=== PATIENT | male | born 1970 | race African-American/Black ===

== ENCOUNTER 2016-09-19 10:04 | Observation (INO) | payer MEDICARE, OTHER ==
[2016-09-19] VITALS (10 sets, daily range): BP systolic 156–209; BP diastolic 97–113; PULSE 48–62; RESP 16–20; TEMP 97.8–99; O2SAT 97–99
[~2016-09-19] VITALS: Ht 172.7 cm; Wt 80.0 kg
[2016-09-19] MEDS: ALPRAZolam 1 MG TAB PO SCH ×4 (06:00→23:37)
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
[2016-09-19] MEDS ORDERED: OMEP10CA PO (10:26)
[2016-09-19] MEDS ORDERED: GABA100C4 PO (10:26)
[2016-09-19] MEDS ORDERED: HYDR-3801 PO (10:26)
[2016-09-19] MEDS ORDERED: NIFE10CA PO (10:26)
[2016-09-19] MEDS ORDERED: ALPR2TAB3 PO (10:26)
[2016-09-19] MEDS ORDERED: LISI2.5T3 PO (10:26)
[2016-09-19] MEDS ORDERED: LEXA5TAB PO (10:26)
[2016-09-19] MEDS ORDERED: SODIUM CHLOR 0.9% 1000 ML INJ 1,000 ML IV SCH (10:32)
[2016-09-19] MEDS ORDERED: SODIUM CHLORIDE 0.9% FLUSH 10 ML FLUSH IV FLUSH PRN ×3 (10:45→13:00)
[2016-09-19] MEDS ORDERED: ONDANSETRON HCL 4 MG/2 ML VIAL IVP ONE (10:45)
[2016-09-19] MEDS ORDERED: PANTOPRAZOLE SODIUM 40 MG VIAL IVP ONE (10:45)
[2016-09-19] MEDS ORDERED: MORPHINE SULFATE 4 MG/ML INJ IV PUSH ONE ×2 (10:45→11:45)
[2016-09-19 11:08] LABS: AUTOMATED NEUTROPHIL # 6.9 TH/MM3 (1.8-7.7); BASOPHIL # 0.1 TH/MM3 (0-0.2); BASOPHIL % 0.7 % (0.0-2.0); EOSINOPHIL % 0.4 % (0.0-4.0); HEMATOCRIT 38.4 % (39.0-51.0); HEMO FLAGS DIFF FINAL; LYMPH % 21.3 % (9.0-44.0); LYMPHOCYTE # 2.2 TH/MM3 (1.0-4.8); MEAN CELL VOLUME 88.9 FL (80.0-100.0); MEAN CORPUSCULAR HGB CONC 33.8 % (32.0-36.0); MONO % 9.7 % (0.0-8.0); NEUT % 67.9 % (16.0-70.0); PLATELET COUNT 400 TH/MM3 (150-450); RED BLOOD COUNT 4.32 MIL/MM3 (4.50-5.90); RED CELL DISTRIBUTION WIDTH 14.3 % (11.6-17.2); WHITE BLOOD COUNT 10.2 TH/MM3 (4.0-11.0)
[2016-09-19 11:22] LABS: ALT (GPT) 18 U/L (12-78); ANION GAP 6 MEQ/L (5-15); AST (GOT) 13 U/L (15-37); BICARBONATE 29.4 MEQ/L (21.0-32.0); BLOOD UREA NITROGEN 14 MG/DL (7-18); CHLORIDE 104 MEQ/L (98-107); GLOMERULAR FILTRATION RATE 78 ML/MIN (>89); SODIUM (NA) 139 MEQ/L (136-145)
[2016-09-19 11:25] LABS: ALKALINE PHOSPHATASE 74 U/L (45-117); TOTAL BILIRUBIN ADULT 0.4 MG/DL (0.2-1.0)
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
[2016-09-19] MEDS ORDERED: SODIUM CHLORIDE 0.9% FLUSH 10 ML FLUSH IV FLUSH SCH (12:30)
--- NOTE | 2016-09-19 13:58 | RADRPT ---
EXAM DATE/TIME: 09/19/2016 13:14 [facility] COMPARISON: No previous studies available for comparison. INDICATIONS : Pain lower chest, upper abdomen, no shortness of breath, no chest surgery MEDICAL HISTORY : Pancreatitis. SURGICAL HISTORY : None. ENCOUNTER: Initial ACUITY: 2 days PAIN SCORE: 5/10 LOCATION: Bilateral chest FINDINGS: A single view of the chest demonstrates the lungs to be symmetrically aerated without evidence of mas s, infiltrate or effusion. The cardiomediastinal contours are unremarkable. Osseous structures are intact. CONCLUSION: No acute disease. Maxwell Grace MD on September 19, 2016 at 13:56 Board Certified Radiologist. This report was verified electronically.
[2016-09-19] MEDS ORDERED: ONDANSETRON HCL 4 MG/2 ML VIAL IV PRN (14:00)
[2016-09-19] MEDS ORDERED: MORPHINE SULFATE 8 MG/ML INJ IV PUSH PRN (14:00)
[2016-09-19] MEDS ORDERED: hydrALAZINE HCL 25 MG TAB PO ONE (14:00)
[2016-09-19] MEDS: LACTATED RINGER'S 1000 ML INJ 1,000 ML IV SCH ×2 (14:35→23:37)
--- NOTE | 2016-09-19 14:55 | RADRPT ---
EXAM DATE/TIME: 09/19/2016 13:27 [facility] COMPARISON: No previous studies available for comparison. INDICATIONS : Right upper quadrant pain. MEDICAL HISTORY : Hypertension. GERD. Anxiety. SURGICAL HISTORY : None. ENCOUNTER: Initial ACUITY: 3 days PAIN SCORE: 7/10 LOCATION: Right upper quadrant MEASUREMENTS: LIVER: 12.9 cm length COMMON DUCT: 3 mm RIGHT KIDNEY: 10.6 x 6.2 x 4.3 cm FINDINGS: LIVER: Normal echotexture without focal lesion or ductal dilatation. COMMON DUCT: No intraluminal mass or stone visualized. GALLBLADDER: Contains no stones, demonstrates no wall thickening or pericholecystic fluid. PANCREAS: The visualized portions are within normal limits. RIGHT KIDNEY: No evidence of hydronephrosis, stone, or mass. CONCLUSION: No acute disease. Maxwell Grace MD on September 19, 2016 at 14:52 Board Certified Radiologist. This report was verified electronically.
[2016-09-19] MEDS ORDERED: ENOXAPARIN SODIUM 40 MG/0.4 ML SYRINGE SQ SCH (15:00)
[2016-09-19 16:18] LABS: BLOOD, URINE TRACE (NEG); GLUCOSE,URINE NEG (NEG); KETONE, URINE NEG (NEG); MUCUS URINE FEW /lpf (OCC); NITRITE,URINE NEG (NEG); SQUAMOUS EPITHELIAL CELL URINE 2 /hpf (0-5); URINE COLOR YELLOW (YELLW/STRAW)
[2016-09-19 16:19] LABS: COMMENT (UR) CULT NOT INDICATED; CULTURE IF INDICATED CULT NOT INDICATED
[2016-09-19] MEDS ORDERED: cloNIDine HCL 0.1 MG TAB PO PRN (17:30)
[2016-09-19] MEDS ORDERED: cloNIDine HCL 0.1 MG TAB PO ONE (17:30)
[2016-09-19] MEDS ORDERED: ALPRAZolam 1 MG TAB PO SCH (17:30)
[2016-09-19] MEDS: hydrALAZINE HCL 50 MG TAB PO SCH (17:41)
[2016-09-19] MEDS: LISINOPRIL 20 MG TAB PO SCH (17:41)
--- NOTE | 2016-09-19 18:11 | EKG ---
Date Performed: 09/19/2016 Time Performed: 13:53:48 PTAGE: 45 years EKG: SINUS BRADYCARDIA Borderline INTRAVENTRICULAR CONDUCTION DELAY BORDERLINE ECG NO PREVIOUS TRACING DOCTOR: Keenan Doe Interpretating Date/Time 09/19/2016 18:09:39
[2016-09-19] MEDS ORDERED: hydrALAZINE HCL 20 MG/ML VIAL IV PRN (19:00)
[2016-09-19 21:52] LABS: ANION GAP 10 MEQ/L (5-15); BLOOD UREA NITROGEN 10 MG/DL (7-18); CHLORIDE 103 MEQ/L (98-107); GLOMERULAR FILTRATION RATE 96 ML/MIN (>89); POTASSIUM 3.2 MEQ/L (3.5-5.1); SODIUM (NA) 139 MEQ/L (136-145)
[2016-09-19 22:47] LABS: REVIEW FLAG FINAL
[2016-09-19] MEDS ORDERED: POTASSIUM CHLORIDE 10 MEQ CONTROLLED RELEASE TAB PO ONE (23:00)
[2016-09-19] MEDS: SODIUM CHLORIDE 0.9% FLUSH 10 ML FLUSH IV FLUSH SCH (23:37)
[2016-09-19] MEDS: PANTOPRAZOLE SODIUM 40 MG VIAL IV SCH (23:37)
[2016-09-20] MEDS: LACTATED RINGER'S 1000 ML INJ 1,000 ML IV SCH ×2 (01:26→09:28)
[2016-09-20 03:38] VITALS: O2SAT 95
[2016-09-20 03:55] VITALS: BP_SYST 160; BP_SYST 197; BP_DIAS 80; BP_DIAS 97; PULSE 50; RESP 18; TEMP 97.8; O2SAT 97
[2016-09-20 05:35] LABS: AUTOMATED NEUTROPHIL # 3.5 TH/MM3 (1.8-7.7); BASOPHIL # 0.1 TH/MM3 (0-0.2); BASOPHIL % 0.7 % (0.0-2.0); EOSINOPHIL # 0.1 TH/MM3 (0-0.4); EOSINOPHIL % 1.8 % (0.0-4.0); HEMATOCRIT 34.8 % (39.0-51.0); HEMO FLAGS DIFF FINAL; LYMPH % 38.5 % (9.0-44.0); LYMPHOCYTE # 2.8 TH/MM3 (1.0-4.8); MEAN CORPUSCULAR HEMOGLOBIN 29.6 PG (27.0-34.0); MEAN CORPUSCULAR HGB CONC 33.3 % (32.0-36.0); MONO % 11.9 % (0.0-8.0); NEUT % 47.1 % (16.0-70.0); PLATELET COUNT 326 TH/MM3 (150-450); RED BLOOD COUNT 3.92 MIL/MM3 (4.50-5.90); RED CELL DISTRIBUTION WIDTH 14.3 % (11.6-17.2); WHITE BLOOD COUNT 7.4 TH/MM3 (4.0-11.0)
[2016-09-20] MEDS: ALPRAZolam 1 MG TAB PO SCH ×2 (06:34)
[2016-09-20 06:41] VITALS: BP 102/62; PULSE 97; RESP 18; TEMP 98.1; O2SAT 97
[2016-09-20 07:44] VITALS: O2SAT 98
--- NOTE | 2016-09-20 08:21 | HHI.FPPN ---
Subjective Subjective Patient seen and examined with the resident team. Case reviewed and discussed Please refer to resident H&P for further details regarding HPI, ROS, PMH, SurgHx , FH and SocHx In summary, patient is a 45yoM with a PMH significant for HTN, GERD presenting with n/v/abdominal pain after an episode of binge drinking. Lipase noted to be elevated He is seen this am feeling much better Tolerating CLD Pain resolved Normal stooling Wants to go home [facility] Objective Objective Last Impressions Gall Bladder Ultrasound 09/19/16 0000 Signed Impressions: Service Date/Time: Monday, September 19, 2016 13:27 - CONCLUSION: No acute disease. Maxwell Grace MD Chest X-Ray 09/19/16 0000 Signed Impressions: Service Date/Time: Monday, September 19, 2016 13:14 - CONCLUSION: No acute disease. Maxwell Grace MD Laboratory Tests - Abnormals Test 09/19/16 09/19/16 09/19/16 09/20/16 10:45 15:30 21:05 04:44 Red Blood Count 4.32 MIL/MM3 3.92 MIL/MM3 Hematocrit 38.4 % 34.0 % 34.8 % Monocytes (%) (Auto) 9.7 % 11.9 % Monocytes # (Auto) 1.0 TH/MM3 Estimat Glomerular Filtration 78 ML/MIN Rate Aspartate Amino Transf 13 U/L (AST/SGOT) Albumin 3.3 GM/DL Lipase 1095 U/L 411 U/L Urine Occult Blood TRACE Urine Leukocyte Esterase TRACE Urine WBC 6 /hpf Urine Mucus FEW /lpf Hemoglobin 11.7 GM/DL 11.6 GM/DL Potassium Level 3.2 MEQ/L Random Glucose 125 MG/DL Calcium Level 7.8 MG/DL Vital Signs 09/19/16 09/19/16 09/19/16 09/19/16 10:16 14:28 15:24 15:58 Temp 99.0 98.0 Pulse 62 52 Resp 20 16 B/P 156/100 163/106 175/110 Pulse Ox 97 99 09/19/16 09/19/16 09/19/16 09/19/16 17:03 17:39 17:53 18:05 Pulse 50 48 52 B/P 177/107 209/113 171/108 Pulse Ox 99 FiO2 21 609/19/16 09/20/16 09/20/16 18:43 19:51 03:38 03:55 Temp 97.8 97.8 Pulse 60 58 50 Resp 18 18 B/P 191/110 164/97 160/80 Pulse Ox 98 95 97 FiO2 21 INTAKE & OUTPUT 09/20/16 07:00 Output Total 450 ml Balance -450 ml Physical exam GENERAL: wdwn male, NAD SKIN: Warm and dry. HEAD: Normocephalic. EYES: No scleral icterus. No injection or drainage. NECK: Supple, trachea midline. No JVD or lymphadenopathy. CARDIOVASCULAR: Regular rate and rhythm without murmurs, gallops, or rubs. RESPIRATORY: Breath sounds equal bilaterally. No accessory muscle use. GASTROINTESTINAL: Abdomen soft, non-tender, nondistended. MUSCULOSKELETAL: No cyanosis, or edema. BACK: Nontender without obvious deformity. No CVA tenderness. Assessment Assessment 45yoM with: Pancreatitis, alcohol induced HTN, uncontrolled GERD Abd pain Vomiting/nausea Anxiety, chronic PLAN PLAN IVF Pain control ADAT Resume anti-hypertensives, titrate as needed Resume anxiety medications Counseled on alcohol use Patient seen and examined. Case reviewed and discussed Agree with plan of care as discussed with me and documented in the resident note. Eva Stafford MD Sep 20, 2016 08:21
[2016-09-20 08:24] VITALS: BP 152/84; PULSE 57; RESP 16; TEMP 98.2; O2SAT 100
--- NOTE | 2016-09-20 08:25 | HHI.DCPOC ---
Discharge Care Plan Diagnosis: (1) GERD (gastroesophageal reflux disease) (2) Acute pancreatitis Goals to Promote Your Health * To prevent worsening of your condition and complications * To maintain your health at the optimal level Directions to Meet Your Goals Take your medications as prescribed Follow your dietary instruction Follow activity as directed Keep your appointments as scheduled Take your immunizations and boosters as scheduled If your symptoms worsen call your PCP, if no PCP go to Urgent Care Center or Emergency Room Smoking is Dangerous to Your Health. Avoid second hand smoke Call the 24-hour hour crisis hotline for domestic abuse at Bradley Russo MD R2 Sep 20, 2016 08:25
[2016-09-20] MEDS ORDERED: OMEP40CA2 PO (08:26)
[2016-09-20] MEDS ORDERED: NIFEdipine 90 MG SUSTAINED RELEASE TAB PO SCH (09:00)
[2016-09-20] MEDS ORDERED: GABAPENTIN 300 MG CAP PO SCH (09:00)
[2016-09-20] MEDS: hydrALAZINE HCL 50 MG TAB PO SCH (09:27)
[2016-09-20] MEDS: LISINOPRIL 20 MG TAB PO SCH (09:27)
[2016-09-20] MEDS: PANTOPRAZOLE SODIUM 40 MG VIAL IV SCH (09:27)
[2016-09-20] MEDS: SODIUM CHLORIDE 0.9% FLUSH 10 ML FLUSH IV FLUSH SCH (09:27)
[2016-09-20] MEDS ORDERED: NIFE90TA3 PO (10:40)
[2016-09-20] MEDS ORDERED: HYDR-3801 PO (10:40)
[2016-09-20] MEDS ORDERED: GABA100C4 PO (10:40)
[2016-09-20] MEDS ORDERED: LISI40TA PO (10:40)
== END 2016-09-20 11:10 | disposition home or self-care (01) ==
LOC: NEPD 10:04 → NEDA 12:27 → NEPGCP 13:59
PROVIDERS: ADMIT Family Medicine; ATTEND Family Medicine
DX: K85.20 Alcohol induced acute pancreatitis without necrosis or infection (principal); K21.9 Gastro-esophageal reflux disease without esophagitis; I10 Essential (primary) hypertension; F41.1 Generalized anxiety disorder; F32.9 Major depressive disorder, single episode, unspecified; F17.200 Nicotine dependence, unspecified, uncomplicated
CPT/HCPCS: 71010; 76705; 80048; 80053; 81001; 83690; 84478; 85014; 85018; 85025; 86140; 93005; 96361; 96374; 96375; 96376; 99285; C9113; G0378; J2270; J2405; J7030; J7120

== ENCOUNTER 2016-09-27 04:47 | Inpatient (IN) | payer MEDICARE, OTHER ==
[~2016-09-27] VITALS: Ht 170.2 cm; Wt 71.8 kg
[2016-09-27] VITALS (16 sets, daily range): BP systolic 151–224; BP diastolic 76–116; PULSE 54–96; RESP 16–20; TEMP 97.9–98.9; O2SAT 93–99
[~2016-09-27 04:47] MED LIST: ALPR2TAB3 PO; GABA100C4 PO; HYDR-3801 PO; LEXA5TAB PO; LISI2.5T3 PO; LISI40TA PO; NIFE10CA PO; NIFE90TA3 PO; OMEP40CA2 PO
[2016-09-27] MEDS ORDERED: SODIUM CHLOR 0.9% 1000 ML INJ 1,000 ML IV SCH (04:53)
--- NOTE | 2016-09-27 04:56 | PD ---
HPI Chief Complaint: Pain: Acute or Chronic Time Seen by Provider: 04:53 Travel History International Travel<30 days: No Contact w/Intl Traveler<30days: No Traveled to known affect area: No History of Present Illness HPI 45-year-old male with history of pancreatitis, hypertension, presents to the ER today with worsening in epigastric abdominal pain which he currently measures a 7 out of 10, nausea with no known exacerbating or alleviating factors. He states that his feet is also been hurting bilaterally. He states he has been walking a lot. He denies any recent alcohol use, fevers, or any other symptoms. Modifying Factors: None Associated Signs & Symptoms: Epigastric abdominal pain Risk Factors: History of pancreatitis PFSH Past Medical History Asthma: No Blood Disorders: No Anxiety: Yes Depression: Yes Heart Rhythm Problems: No Cancer: No Cardiovascular Problems: Yes High Cholesterol: No Chemotherapy: No Chest Pain: No Congestive Heart Failure: No COPD: No Diabetes: No Endocrine: No GERD: Yes Genitourinary: No Hypertension: Yes Immune Disorder: No Musculoskeletal: No Neurologic: No Psychiatric: Yes (BIPOLAR, SEVER ANXIETY, CRHONIC DEPRESSION, OCD, SUICIDAL TOUGHT) Reproductive: No Respiratory: No Sleep Apnea: No Thyroid Disease: No Social History Alcohol Use: Yes (RARE) Tobacco Use: Yes (PACK A DAY) Substance Use: Yes (marijuana) Allergies-Medications (Allergen,Severity, Reaction): Coded Allergies: No Known Allergies (Unverified , 09/19/16) Reported Meds & Prescriptions Reported Meds & Active Scripts Active Nifedipine ER 24 HR (Nifedipine) 90 Mg Tab 90 Mg PO DAILY Lisinopril 40 Mg Tab 40 Mg PO DAILY Gabapentin 100 Mg Cap 300 Mg PO DAILY Hydralazine (Hydralazine HCl) 100 Mg Tab 50 Mg PO TID Take with meals Omeprazole 40 Mg Cap 40 Mg PO DAILY Reported Lexapro (Escitalopram Oxalate) 5 Mg Tab Unknown Dose PO DAILY Alprazolam 2 Mg Tab 2 Mg PO TID PRN Lisinopril 2.5 Mg Tab 40 Mg PO DAILY Nifedipine 10 Mg Cap 90 Mg PO DAILY Review of Systems Except as stated in HPI: all other systems reviewed are Neg Physical Exam Narrative GENERAL: Well-developed middle age -[place] male patient currently in mild distress. Awake and oriented 3. SKIN: Focused skin assessment warm/dry. HEAD: Atraumatic. Normocephalic. EYES: Pupils equal and round. No scleral icterus. No injection or drainage. ENT: No nasal bleeding or discharge. Mucous membranes pink and moist. NECK: Trachea midline. No JVD. CARDIOVASCULAR: Regular rate and rhythm. No murmur appreciated. RESPIRATORY: No accessory muscle use. Clear to auscultation. Breath sounds equal bilaterally. GASTROINTESTINAL: Abdomen soft, mild epigastric tenderness without guarding or rebound, nondistended. Hepatic and splenic margins not palpable. MUSCULOSKELETAL: No obvious deformities. No clubbing. No cyanosis. No edema. NEUROLOGICAL: Awake and alert. No obvious cranial nerve deficits. Motor grossly within normal limits. Normal speech. PSYCHIATRIC: Appropriate mood and affect; insight and judgment normal. Data Data Last Documented VS Vital Signs Date Time Temp Pulse Resp B/P Pulse Ox O2 Delivery O2 Flow Rate FiO2 09/27/16 06:30 58 181/93 09/27/16 06:00 99 Room Air 09/27/16 04:47 98.9 20 Orders Complete Blood Count With Diff (09/27/16 04:53) Comprehensive Metabolic Panel (09/27/16 04:53) Lipase (09/27/16 04:53) Iv Access Insert/Monitor (09/27/16 04:53) Ecg Monitoring (09/27/16 04:53) Oximetry (09/27/16 04:53) Morphine Inj (Morphine Inj) (09/27/16 05:00) Ondansetron Inj (Zofran Inj) (09/27/16 05:00) Pantoprazole Inj (Protonix Inj) (09/27/16 05:00) Sodium Chlor 0.9% 1000 Ml Inj (Ns 1000 M (09/27/16 04:53) Sodium Chloride 0.9% Flush (Ns Flush) (09/27/16 05:00) Electrocardiogram (09/27/16 04:53) Chest, Single Ap (09/27/16 04:53) Hydromorphone Pf Inj (Dilaudid Pf Inj) (09/27/16 06:00) Ct Abd/Pel W Iv Contrast(Rout) (09/27/16 05:57) Labs Laboratory Tests Test 09/27/16 05:00 White Blood Count 7.1 TH/MM3 Red Blood Count 4.26 MIL/MM3 Hemoglobin 13.0 GM/DL Hematocrit 37.8 % Mean Corpuscular Volume 88.6 FL Mean Corpuscular Hemoglobin 30.4 PG Mean Corpuscular Hemoglobin 34.4 % Concent Red Cell Distribution Width 14.7 % Platelet Count 341 TH/MM3 Mean Platelet Volume 7.3 FL Neutrophils (%) (Auto) 55.0 % Lymphocytes (%) (Auto) 31.8 % Monocytes (%) (Auto) 11.0 % Eosinophils (%) (Auto) 1.2 % Basophils (%) (Auto) 1.0 % Neutrophils # (Auto) 3.9 TH/MM3 Lymphocytes # (Auto) 2.2 TH/MM3 Monocytes # (Auto) 0.8 TH/MM3 Eosinophils # (Auto) 0.1 TH/MM3 Basophils # (Auto) 0.1 TH/MM3 CBC Comment DIFF FINAL Differential Comment Sodium Level 139 MEQ/L Potassium Level 3.7 MEQ/L Chloride Level 105 MEQ/L Carbon Dioxide Level 26.2 MEQ/L Anion Gap 8 MEQ/L Blood Urea Nitrogen 15 MG/DL Creatinine 1.24 MG/DL Estimat Glomerular Filtration 76 ML/MIN Rate Random Glucose 85 MG/DL Calcium Level 8.9 MG/DL Total Bilirubin 0.5 MG/DL Aspartate Amino Transf 24 U/L (AST/SGOT) Alanine Aminotransferase 24 U/L (ALT/SGPT) Alkaline Phosphatase 80 U/L Total Protein 7.6 GM/DL Albumin 3.7 GM/DL Lipase 170 U/L [facility] Medical Decision Making Medical Screen Exam Complete: Yes Emergency Medical Condition: Yes Medical Record Reviewed: Yes Interpretation(s) EKG shows sinus bradycardia rate 53 bpm with a right bundle branch block pattern. No signs of acute ST-T changes. Laboratory Tests Test 09/27/16 05:00 Red Blood Count 4.26 MIL/MM3 (4.50-5.90) Hematocrit 37.8 % (39.0-51.0) Monocytes (%) (Auto) 11.0 % (0.0-8.0) Estimat Glomerular Filtration 76 ML/MIN (>89) Rate Differential Diagnosis Gastritis versus gastroenteritis versus pancreatitis versus ACS versus metabolic issues versus dehydration Narrative Course Patient was given pain medications, Zofran, and IV fluids in the ER. His blood pressure is significantly elevated despite the pain treatment. Lab work did not show any signs of lipase elevation, metabolic issues, or significant dehydration. Considering patient's symptoms, CAT scan was ordered for further evaluation of the abdomen. Physician Communication Physician Communication Case is signed out to Dr. Plata at 7 AM pending CAT scan. Awaiting CT for disposition and also reevaluation of blood pressures. Diagnosis Primary Impression: Hypertension Additional Impression: Abdominal pain Condition: Stable Sree Morel MD Sep 27, 2016 04:56
[2016-09-27] MEDS ORDERED: MORPHINE SULFATE 4 MG/ML INJ IV PUSH ONE (05:00)
[2016-09-27] MEDS ORDERED: SODIUM CHLORIDE 0.9% FLUSH 10 ML FLUSH IV FLUSH PRN ×2 (05:00→11:00)
[2016-09-27] MEDS ORDERED: ONDANSETRON HCL 4 MG/2 ML VIAL IVP ONE (05:00)
[2016-09-27] MEDS ORDERED: PANTOPRAZOLE SODIUM 40 MG VIAL IVP ONE (05:00)
[2016-09-27 05:16] LABS: AUTOMATED NEUTROPHIL # 3.9 TH/MM3 (1.8-7.7); BASOPHIL # 0.1 TH/MM3 (0-0.2); EOSINOPHIL # 0.1 TH/MM3 (0-0.4); EOSINOPHIL % 1.2 % (0.0-4.0); HEMATOCRIT 37.8 % (39.0-51.0); HEMO FLAGS DIFF FINAL; LYMPH % 31.8 % (9.0-44.0); LYMPHOCYTE # 2.2 TH/MM3 (1.0-4.8); MEAN CELL VOLUME 88.6 FL (80.0-100.0); MEAN CORPUSCULAR HEMOGLOBIN 30.4 PG (27.0-34.0); MEAN CORPUSCULAR HGB CONC 34.4 % (32.0-36.0); PLATELET COUNT 341 TH/MM3 (150-450); RED BLOOD COUNT 4.26 MIL/MM3 (4.50-5.90); RED CELL DISTRIBUTION WIDTH 14.7 % (11.6-17.2); WHITE BLOOD COUNT 7.1 TH/MM3 (4.0-11.0)
--- NOTE | 2016-09-27 05:33 | RADRPT ---
EXAM DATE/TIME: 09/27/2016 05:08 [facility] COMPARISON: No previous studies available for comparison. INDICATIONS : Shortness of breath. MEDICAL HISTORY : None. SURGICAL HISTORY : None. ENCOUNTER: Initial ACUITY: 1 day PAIN SCORE: 0/10 LOCATION: Bilateral chest FINDINGS: A single view of the chest demonstrates the lungs to be symmetrically aerated without evidence of mas s, infiltrate or effusion. The cardiomediastinal contours are unremarkable. Osseous structures are intact. CONCLUSION: No evidence of acute cardiopulmonary disease. Piotr Tobin MD on September 27, 2016 at 5:31 Board Certified Radiologist. This report was verified electronically.
[2016-09-27 05:45] LABS: ALKALINE PHOSPHATASE 80 U/L (45-117); TOTAL BILIRUBIN ADULT 0.5 MG/DL (0.2-1.0)
[2016-09-27 05:52] LABS: ALT (GPT) 24 U/L (12-78); ANION GAP 8 MEQ/L (5-15); AST (GOT) 24 U/L (15-37); BICARBONATE 26.2 MEQ/L (21.0-32.0); BLOOD UREA NITROGEN 15 MG/DL (7-18); CHLORIDE 105 MEQ/L (98-107); GLOMERULAR FILTRATION RATE 76 ML/MIN (>89); POTASSIUM 3.7 MEQ/L (3.5-5.1); SODIUM (NA) 139 MEQ/L (136-145)
[2016-09-27] MEDS ORDERED: HYDROmorphone HCL PF 1 MG/ML VIAL IV PUSH ONE (06:00)
[2016-09-27] MEDS ORDERED: IOHEXOL 350 MG/ML 10 ML VIAL (for RAD DIAG) IV ONE (06:55)
--- NOTE | 2016-09-27 08:33 | RADRPT ---
EXAM DATE/TIME: 09/27/2016 06:53 [facility] COMPARISON: No previous studies available for comparison. INDICATIONS : Epigastric abdominal pain. IV CONTRAST: 94 cc Omnipaque 350 (iohexol) IV ORAL CONTRAST: No oral contrast ingested. RADIATION DOSE: 5.42 CTDIvol (mGy) MEDICAL HISTORY : Gastroesophageal reflux disease. Pancreatitis. Hypertension. SURGICAL HISTORY : None. ENCOUNTER: Initial ACUITY: 1 day PAIN SCALE: 7/10 LOCATION: Epigastric. TECHNIQUE: Volumetric scanning of the abdomen and pelvis was performed. Using automated exposure control and ad justment of the mA and/or kV according to patient size, radiation dose was kept as low as reasonably achievable to obtain optimal diagnostic quality images. FINDINGS: There is a right adrenal mass measuring 4.2 x 3.5 cm which is indeterminate. MRI of the abdomen with contrast using adrenal adenoma protocol would be helpful for further assessment of this indeterminat e right adrenal mass. Focal fatty infiltration is noted within the right lobe of the liver. No foca l hepatic mass is noted. No biliary ductal dilatation is noted. The gallbladder is unremarkable. T he spleen is normal. The pancreas is also normal. The left adrenal gland is unremarkable. There ar e two simple cysts within the left kidney with the larger measuring 2.7 cm. There is no solid renal mass or hydronephrosis. No calcified renal calculus is noted on either side. The abdominal aorta an d inferior vena cava are unremarkable. There is no para-aortic, retroperitoneal, or mesenteric lymph adenopathy. No ascites is noted. There is mild diffuse urinary bladder wall thickening which is non specific. The prostate gland is prominent. No pelvic lymphadenopathy is noted. No abdominal wall h ernia is noted. The visualized lung bases are clear. CONCLUSION: 1. Right adrenal mass measuring 4.2 x 3.5 cm which is indeterminate. MRI of the abdomen with contras t using adrenal adenoma protocol may be helpful for further evaluation of this mass if clinically ind icated. 2. Focal fatty infiltration of the right lobe of the liver. 3. Diffuse urinary bladder wall thickening. 4. Enlarged prostate. 5. Multiple left renal cysts. Catalino Hunt MD on September 27, 2016 at 7:14 Board Certified Radiologist. This report was verified electronically.
[2016-09-27] MEDS ORDERED: hydrALAZINE HCL 20 MG/ML VIAL IV PUSH ONE ×2 (09:00→10:00)
--- NOTE | 2016-09-27 09:47 | PD ---
Physical Exam Date Seen by Provider: Sep 27, 2016 Time Seen by Provider: 07:00 Narrative Patient was signed out to me by Dr. Lunsford at 7 AM during shift change. We are waiting CT results as well as laboratory tests. The patient presents with epigastric pain and elevated blood pressure. The patient has a history of hypertension. He states he's been out of his medications for "a couple days". The patient had an EKG that showed no evidence of acute ST elevation. Cardiac enzymes are within normal limits. The patient's blood pressure continued to say persistently high. He was given 10 mg of hydralazine. His blood pressure has come down however still 170s over 90s. Given this, I feel the patient should be brought in under observation for blood pressure control. He'll also have rule out cardiac enzymes. The patient states he is from [place]. There is a family practice note in the computer. Data Data Last Documented VS Vital Signs Date Time Temp Pulse Resp B/P Pulse Ox O2 Delivery O2 Flow Rate FiO2 09/27/16 09:13 55 16 174/95 99 Room Air 09/27/16 04:47 98.9 Orders Complete Blood Count With Diff (09/27/16 04:53) Comprehensive Metabolic Panel (09/27/16 04:53) Lipase (09/27/16 04:53) Iv Access Insert/Monitor (09/27/16 04:53) Ecg Monitoring (09/27/16 04:53) Oximetry (09/27/16 04:53) Morphine Inj (Morphine Inj) (09/27/16 05:00) Ondansetron Inj (Zofran Inj) (09/27/16 05:00) Pantoprazole Inj (Protonix Inj) (09/27/16 05:00) Sodium Chlor 0.9% 1000 Ml Inj (Ns 1000 M (09/27/16 04:53) Sodium Chloride 0.9% Flush (Ns Flush) (09/27/16 05:00) Electrocardiogram (09/27/16 04:53) Chest, Single Ap (09/27/16 04:53) Hydromorphone Pf Inj (Dilaudid Pf Inj) (09/27/16 06:00) Ct Abd/Pel W Iv Contrast(Rout) (09/27/16 05:57) Iohexol 350 Inj (Omnipaque 350 Inj) (09/27/16 06:55) Hydralazine Inj (Apresoline Inj) (09/27/16 09:00) Admit Order (Ed Use Only) (09/27/16 09:47) Hydralazine Inj (Apresoline Inj) (09/27/16 10:00) Labs Laboratory Tests Test 09/27/16 05:00 White Blood Count 7.1 TH/MM3 Red Blood Count 4.26 MIL/MM3 Hemoglobin 13.0 GM/DL Hematocrit 37.8 % Mean Corpuscular Volume 88.6 FL Mean Corpuscular Hemoglobin 30.4 PG Mean Corpuscular Hemoglobin 34.4 % Concent Red Cell Distribution Width 14.7 % Platelet Count 341 TH/MM3 Mean Platelet Volume 7.3 FL Neutrophils (%) (Auto) 55.0 % Lymphocytes (%) (Auto) 31.8 % Monocytes (%) (Auto) 11.0 % Eosinophils (%) (Auto) 1.2 % Basophils (%) (Auto) 1.0 % Neutrophils # (Auto) 3.9 TH/MM3 Lymphocytes # (Auto) 2.2 TH/MM3 Monocytes # (Auto) 0.8 TH/MM3 Eosinophils # (Auto) 0.1 TH/MM3 Basophils # (Auto) 0.1 TH/MM3 CBC Comment DIFF FINAL Differential Comment Sodium Level 139 MEQ/L Potassium Level 3.7 MEQ/L Chloride Level 105 MEQ/L Carbon Dioxide Level 26.2 MEQ/L Anion Gap 8 MEQ/L Blood Urea Nitrogen 15 MG/DL Creatinine 1.24 MG/DL Estimat Glomerular Filtration 76 ML/MIN Rate Random Glucose 85 MG/DL Calcium Level 8.9 MG/DL Total Bilirubin 0.5 MG/DL Aspartate Amino Transf 24 U/L (AST/SGOT) Alanine Aminotransferase 24 U/L (ALT/SGPT) Alkaline Phosphatase 80 U/L Total Protein 7.6 GM/DL Albumin 3.7 GM/DL Lipase 170 U/L [facility] Medical Record Reviewed: Yes Supervised Visit with KAVYA: No Narrative Course 35-year-old male presents with epigastric pain. The patient was given IVP pain medicine doses 2. His blood pressure was also noted to be persistently high. Despite 110 mg dose of IV hydralazine, his blood pressure still elevated. He' ll be given a second dose. CT scan of the and pelvis ordered by Dr. Isatu shows a adrenal mass. There is recommendation for a MRI to further visualize. There is a call out to the team B service for admission under observation. Diagnosis Primary Impression: Uncontrolled hypertension Additional Impressions: Abdominal pain Adrenal mass Condition: Stable Kartik Plata MD Sep 27, 2016 09:47
--- NOTE | 2016-09-27 09:57 | EKG ---
Date Performed: 09/27/2016 Time Performed: 04:59:02 PTAGE: 45 years EKG: SINUS BRADYCARDIA BORDERLINE ECG PREVIOUS TRACING : 09/19/2016 13.53 No significant change from previous tracing noted. DOCTOR: Amilcar Thorpe Interpretating Date/Time 09/27/2016 09:55:47
--- NOTE | 2016-09-27 10:10 | HHI.HP ---
HPI Service Family Medicine Primary Care Physician No Primary Care Physician Admission Diagnosis uncontrolled hypetension, abdominal pain Diagnoses: International Travel<30 Days: No Contact w/Intl Traveler<30days: No Known Affected Area: No History of Present Illness Patient was recently admitted on 09/19, and stayed for 24 hours, for pancreatitis , and elevated blood pressure. He was discharged home on lisinopril 40 mg qd, nifedipine 90 mg SR qd, and hydralazine (50 mg TID). He has been off antihypertensives for (last taken on Monday 09/25). HPI: Patient reports that he was riding a bike and became dizzy and "forgot how to ride a bike" that was this am at 0400 (09/27/2016). This has never happened to him before. He states that he was having difficulty holding the handle bars. "My left side wasn't working". Called 911. While waiting for the ambulance he reports that his left side was "not cooperating." He also reports having a headache at that time and his vision became blurry. These symptoms lasted 3-5 minutes. Also having severe pain in his feet from walking so much. Walking all day and all night, did not "want to impose on anybody so I just kept walking". Got into an argument with her mother, left her house (Sunday). He reports not wanting to be around anybody and feeling depressed. ROS: Denies chest pain, SOB, N/V, diarrhea, No abdominal pain. ++MUNIZ in frontal lobe (07/17). Waxing and waning. Very very depressed and home sick. Has and kids at home which are in [place]. No suicidal thoughts, but if he didn't call 911, that would have been his next step. Last "48 hours had those thoughts a lot" that he would be better off . Reports that he had a "plan of running out in front of a semi truck." Not taking Lexapro and Xanax, which are in [place]. Took cocaine (smoked), and smoked a couple of blunts (Marijuana) in the past 24 hours. (Bradley Russo MD R2) Review of Systems Constitutional: COMPLAINS OF: Fatigue, Chills, DENIES: Fever Endocrine: COMPLAINS OF: Polyuria Eyes: DENIES: Blurred vision Respiratory: DENIES: Cough, Sputum production, Shortness of breath Cardiovascular: DENIES: Chest pain, Palpitations, Syncope Gastrointestinal: DENIES: Abdominal pain, Black stools, Bloody stools, Constipation, Diarrhea, Nausea, Vomiting Musculoskeletal: COMPLAINS OF: Joint pain (feet ) Neurologic: COMPLAINS OF: Headache, Localized weakness (left side), DENIES: Abnormal gait, Paresthesias, Seizures, Speech Problems, Tremor, Poor Balance Psychiatric: COMPLAINS OF: Anxiety, Depression, Suicidal Ideation (Bradley Russo MD R2) Past Family Social History Past Medical History Hypertension GERD GABRIEL / MDD Past Surgical History None (Bradley Russo MD R2) Allergies: Coded Allergies: No Known Allergies (Unverified , 09/19/16) Family History Mother - HTN; sister - HTN; brother - HTN No FHx of pancreatitis. Social History Denies daily alcohol use. From [place], no tobacco use. + Cocaine use, last used on 09/26, prior to this he was clean for 8 years. +Marijuana Mom in [facility], reports none of his siblings take care of her. and children in [place]. (Bradley Russo MD R2) Physical Exam Vital Signs Vital Signs Date Time Temp Pulse Resp B/P Pulse Ox O2 Delivery O2 Flow Rate FiO2 09/27/16 09:13 55 16 174/95 99 Room Air 09/27/16 08:47 67 18 188/106 99 Room Air 09/27/16 06:30 58 181/93 09/27/16 06:00 55 176/92 99 Room Air 09/27/16 05:36 96 203/93 93 Room Air 09/27/16 05:22 67 224/116 97 Room Air 09/27/16 04:56 99 Room Air 09/27/16 04:50 99 09/27/16 04:47 98.9 79 20 215/104 99 Room Air 193/116 Physical Exam GENERAL: Appears agitated. Tearful. SKIN: No rashes, ecchymoses or lesions. HEAD: Pupils <3 mm in diameter but reactive to light. EOM intact, decreased sensation over left side of face V2/V3 distribution, motor function intact, Uvula midline, 5/5 strenghth trapezius, Poor coordination on finger to nose. EYES: Pupils equal round and reactive. Extraocular motions intact. ENT: Nose without bleeding, purulent drainage or septal hematoma. Throat with erythema and 2 submental lymph nodes ~0.5 cm in diameter non tender. NECK: Trachea midline. CARDIOVASCULAR: RRR, PMI displaced laterally. RESPIRATORY: Clear to auscultation. GASTROINTESTINAL: Abdomen soft, non-tender, nondistended. No hepato-splenomegaly , or palpable masses. MUSCULOSKELETAL:No joint tenderness, effusion, or edema noted. No calf tenderness. NEUROLOGICAL: Awake and alert. CN as noted above. Normal speech. Facies symmetrical. 3/5 strength of hip flexors on the left, 4/5 strength of plantar flexion and plantar dorsiflexion of left foot. sensation intact. Laboratory Laboratory Tests Test 09/27/16 05:00 White Blood Count 7.1 Red Blood Count 4.26 Hemoglobin 13.0 Hematocrit 37.8 Mean Corpuscular Volume 88.6 Mean Corpuscular Hemoglobin 30.4 Mean Corpuscular Hemoglobin 34.4 Concent Red Cell Distribution Width 14.7 Platelet Count 341 Mean Platelet Volume 7.3 Neutrophils (%) (Auto) 55.0 Lymphocytes (%) (Auto) 31.8 Monocytes (%) (Auto) 11.0 Eosinophils (%) (Auto) 1.2 Basophils (%) (Auto) 1.0 Neutrophils # (Auto) 3.9 Lymphocytes # (Auto) 2.2 Monocytes # (Auto) 0.8 Eosinophils # (Auto) 0.1 Basophils # (Auto) 0.1 CBC Comment DIFF FINAL Differential Comment Sodium Level 139 Potassium Level 3.7 Chloride Level 105 Carbon Dioxide Level 26.2 Anion Gap 8 Blood Urea Nitrogen 15 Creatinine 1.24 Estimat Glomerular Filtration 76 Rate Random Glucose 85 Calcium Level 8.9 Total Bilirubin 0.5 Aspartate Amino Transf 24 (AST/SGOT) Alanine Aminotransferase 24 (ALT/SGPT) Alkaline Phosphatase 80 Total Protein 7.6 Albumin 3.7 Lipase 170 (Bradley Russo MD R2) Result Diagram: 09/27/16 0500 09/27/16 0500 Imaging Last 72 hours Impressions Chest X-Ray 09/27/16 2632 Signed Impressions: Service Date/Time: Tuesday, September 27, 2016 05:08 - CONCLUSION: No evidence of acute cardiopulmonary disease. Piotr Tobin MD (Bradley Russo MD R2) Septic Shock Reassessment Heart: Regular rate and rhythm Lungs: Clear Skin: Warm Peripheral Pulses: Bounding Right Radial Bounding Left Radial (Bradley Russo MD R2) Assessment and Plan Assessment and Plan Jeremiah Antunez is a pleasant 45-year-old male, with past medical history of uncontrolled hypertension, pancreatitis, acid reflux, major depressive disorder , presenting with acute onset left-sided weakness and decreased coordination, as well as blood pressures of 215 systolic. Also having passive suicidal ideation. He will be admitted for a stroke workup, hypertensive emergency, and suicidal ideation. Code Status Full Code. (Bradley Russo MD R2) Attending Attestation The patient has been seen and examined. The chart and all resident notes have been reviewed. I agree that inpatient care is appropriate and that a two midnight stay is expected for the reasons documented in the resident history and physical. I have discussed this with the resident and certify the resident s order for inpatient admission. Patient seen and examined. Case reviewed and discussed Please refer to resident H&P for further details regarding HPI, ROS, PMH, SurgHx , Fh and SocHx In summary, patient is a 45yoM with a history of PSA, uncontrolled HTN, chronic pancreatitis, and depression and anxiety, presenting with hypertensive emergency. He was seen in the ED with significantly elevated BP. He was also noted to have L sided weakness which was new after patient did cocaine sometime on the morning /night prior to admission At the time of my encounter, patient was having resolution of his symptoms. MRI brain pending. GENERAL: wdwn male, resting in bed, anxious appearing SKIN: Warm and dry. no rashes HEAD: Normocephalic. AT EYES: No scleral icterus. No injection or drainage. ENT: Op clear. MMM NECK: Supple, trachea midline. No JVD or lymphadenopathy. CARDIOVASCULAR: Regular rate and rhythm without murmurs, gallops, or rubs. RESPIRATORY: Breath sounds equal bilaterally. No accessory muscle use. GASTROINTESTINAL: Abdomen soft, non-tender, nondistended. MUSCULOSKELETAL: No cyanosis, or edema. NO calf tenderness BACK: Nontender without obvious deformity. No CVA tenderness. NEURO: 4/5 LUE, LLE, 5/5 RUE, RLE. Normal speech. Awake and alert. CN grossly intact. 45yoM admitted with: Hypertensive emergency r/o CVA vs TIA Acute neurologic change PSA HTN, uncontrolled Chronic pancreatitis GERD Anxiety/Depression Stroke work-up Neurochecks Control BP once able Counseled on drug use Psych consultation for suicidal ideation IVF Lovenox Patient counseled on compliance Patient seen and examined. Case reviewed and discussed Agree with plan of care as discussed with me and documented in the resident note. (Eva Stafford MD) Problem List: (1) Left-sided muscle weakness Status: Acute Plan: Given blood pressure of 215 systolic over 110 mm Hg on admission, new onset left-sided weakness, and headaches, the differential diagnosis includes: TIA, vs. CVA, vs. subarachnoid hemorrhage/intracranial bleeding vs. hypertensive emergency. Given hydralazine 10 mg IV push 2 in the emergency room. Bp corrected to 178 / 80 systolic. PLAN: -Stroke workup to include, stat CT of head, MRI/MRA of brain, aspirin 325 mg 1, neuro checks q 1 hr. -Permissive hypertension to 220 systolic, Nicardipine gtt if BP greater than 220 systolic. -Head of bed flat x 12 hours. -Physical Therapy consult. (2) Uncontrolled hypertension Status: Acute Plan: 215/109 on admission - allow for permissive HTN until CT / MRI are resulted. Nicardipine gtt if systolic > 220 mg Hg Start Lisinopril 40 daily, Nifedipine 90 daily and Hydralazine 50 mg TID once stroke work up is complete. (3) Adrenal mass Status: Acute Plan: "New adrenal mass measuring 4.2 x 3.5 cm which is indeterminate. MRI of the abdomen with contrast using adrenal adenoma protocol may be helpful for further evaluation of mass." Concerning for Pheochromocytoma. Collect 24 hours urine metanephrines and fractionated plasma metanephrines. Per [facility]FP "In low risk, asymptomatic patients, adrenal incidentalomas 4 cm or smaller are often benign." Evidence rating C. Given size > 4.0 cm, MRI with further work up may be beneficial. (4) GERD (gastroesophageal reflux disease) Status: Acute Plan: Protonix 40 mg daily. Lipase wnl, abdominal pain subsided. (5) Suicidal thoughts Status: Acute Plan: Patient severely depressed on exam. Thoughts of jumping out in front of a semi-truck. No active suicidal thoughts, ideations, or plan. Not taking his home Lexapro and Xanax. We appreciate psychiatry's recommendations. (6) Nutrition, metabolism, and development symptoms Status: Acute Plan: Nutrition: NPO until swallow eval by nursing. Electrolytes: at goal DVT ppx: Hold anticoagulation given possibility of bleeding, SCDs GI ppx: as above. dw Dr. Stafford. (Bradley Russo MD R2) Physician Certification 2 Midnight Certification Type: Admission for Inpatient Services Order for Inpatient Services The services are ordered in accordance with Medicare regulations or non- Medicare payer requirements, as applicable. In the case of services not specified as inpatient-only, they are appropriately provided as inpatient services in accordance with the 2-midnight benchmark. Estimated LOS (days): 2 2 days is the estimated time the patient will need to remain in the hospital, assuming treatment plan goals are met and no additional complications. Post-Hospital Plan: Home (Bradley Russo MD R2) Bradley Russo MD R2 Sep 27, 2016 10:10 Eva Stafford MD Sep 27, 2016 20:34
[2016-09-27] MEDS ORDERED: ALPRAZolam 1 MG TAB PO ONE (10:30)
[2016-09-27] MEDS ORDERED: GLUCAGON 1 MG/ML VIAL OTHER PRN (10:45)
[2016-09-27] MEDS ORDERED: DEXTROSE 50% IN WATER 50 ML VIAL(D50) IV PUSH PRN (10:45)
[2016-09-27] MEDS ORDERED: NALOXONE HCL 0.4 MG/ML AMP IV PRN (11:00)
[2016-09-27] MEDS: INSULIN ASPART SUPPLEMENTAL SCALE SQ SCH ×3 (11:00→21:00)
[2016-09-27 11:10] LABS: AMPHETAMINE, URINE NEG (NEG); BARBITURATES, URINE NEG (NEG); COCAINE, URINE POS (NEG)
[2016-09-27 11:48] LABS: BLOOD, URINE NEG (NEG); GLUCOSE,URINE NEG (NEG); KETONE, URINE NEG (NEG); MUCUS URINE FEW /lpf (OCC); NITRITE,URINE NEG (NEG); PH, URINE 5.5 (5.0-8.5); SQUAMOUS EPITHELIAL CELL URINE <1 /hpf (0-5); URINE COLOR YELLOW (YELLW/STRAW)
--- NOTE | 2016-09-27 11:52 | RADRPT ---
EXAM DATE/TIME: 09/27/2016 11:20 [facility] COMPARISON: No previous studies available for comparison. INDICATIONS : Dizziness,memory loss RADIATION DOSE: 56.80 CTDIvol (mGy) MEDICAL HISTORY : Cardiovascular disease. Hypertension. Pancreatitis. SURGICAL HISTORY : None. ENCOUNTER: Initial ACUITY: 1 day PAIN SCALE: 5/10 LOCATION: cranial TECHNIQUE: Multiple contiguous axial images were obtained of the head. Using automated exposure control and adj ustment of the mA and/or kV according to patient size, radiation dose was kept as low as reasonably a chievable to obtain optimal diagnostic quality images. FINDINGS: CEREBRUM: The ventricles are normal for age. No evidence of midline shift, mass lesion, hemorrhage or acute in farction. No extra-axial fluid collections are seen. POSTERIOR FOSSA: The cerebellum and brainstem are intact. The 4th ventricle is midline. The cerebellopontine angle i s unremarkable. EXTRACRANIAL: The visualized portion of the orbits is intact. SKULL: The calvaria is intact. No evidence of skull fracture. CONCLUSION: Normal examination. Piotr Chase MD on September 27, 2016 at 11:49 Board Certified Radiologist. This report was verified electronically.
[2016-09-27] MEDS ORDERED: niCARdipine INJ 25 MG in SODIUM CHLOR 0.9% 250 ML INJ 250 ML IV SCH (12:00)
[2016-09-27] MEDS: PANTOPRAZOLE SOD 40 MG DELAYED RELEASE TAB PO SCH (12:12)
[2016-09-27] MEDS: ASPIRIN 325 MG TAB PO SCH (12:13)
--- NOTE | 2016-09-27 15:03 | RADRPT ---
EXAM DATE/TIME: 09/27/2016 14:23 [facility] COMPARISON: No previous studies available for comparison. INDICATIONS : Left sided weakness. High blood pressure. MEDICAL HISTORY : Hypertension. Gastroesophageal reflux disease. SURGICAL HISTORY : None. ENCOUNTER: Initial ACUITY: 1 day PAIN SCORE: 0/10 LOCATION: head Please note a normal MRA of the brain does not entirely exclude the possibility of a small aneurysm, nor the possibility of distal intracranial vessel disease. TECHNIQUE: 3D time of flight MRA was performed. Source images, multiplanar STS MIP, and 3D volume MIP reconstru ctions were reviewed. FINDINGS: There is excellent visualization of the major intracranial arteries out to the second-order branch ve ssels. There is no evidence for aneurysm, vessel truncation or stenosis, and no evidence for vascula r malformation. Incidental note of hypoplastic left P-comm. Codominant vertebral arteries with patent basilar artery. No evidence for stenosis, aneurysm, or vascular malformation in the posterior circul ation. CONCLUSION: 1. Unremarkable MRA examination of the brain. Specifically, no evidence for stenosis, aneurysm or vas cular malformation. Marvin Bradford MD on September 27, 2016 at 14:54 Board Certified Radiologist. This report was verified electronically.
--- NOTE | 2016-09-27 15:15 | RADRPT ---
EXAM DATE/TIME: 09/27/2016 14:23 [facility] COMPARISON: CT BRAIN W/O CONTRAST, September 27, 2016, 11:20. INDICATIONS : Left sided weakness. High blood pressure. MEDICAL HISTORY : Hypertension. Gastroesophageal reflux disease. SURGICAL HISTORY : None. ENCOUNTER: Initial ACUITY: 1 day PAIN SCORE: 0/10 LOCATION: head TECHNIQUE: Multiplanar, multisequence MRI of the brain was performed without contrast. FINDINGS: CEREBRUM: The ventricles are normal for age. No evidence of midline shift, mass lesion, hemorrhage or acute in farction. No extraaxial fluid collections are seen. The pituitary gland and suprasellar cistern are normal in configuration. WHITE MATTER: No significant signal abnormalities are seen in the white matter. POSTERIOR FOSSA: The cerebellum and brainstem are intact. The 4th ventricle is midline. The cerebellopontine angle is unremarkable. The cerebellar tonsils are normal in position. DIFFUSION IMAGING: No focal areas of restricted diffusion are seen. No evidence of acute infarction. EXTRACRANIAL: The visualized portions of the orbits and paranasal sinuses are unremarkable. CONCLUSION: Normal examination. Piotr Chase MD on September 27, 2016 at 14:48 Board Certified Radiologist. This report was verified electronically.
--- NOTE | 2016-09-27 15:16 | PD.CONS ---
Provisional Diagnosis Admission Date Sep 27, 2016 at 10:11 [place] I. Self reported bipolar disorder, antisocial personality disorder, cocaine and cannabis use disorder [place] II. Antisocial personality disorder [place] III. Pancreatitis, hypertension [place] IV. History of incarcerations, noncompliant on medications, cocaine and cannabis use disorder [place] V. 54 History of Present Illness Service Psychiatry Consult Requested By Primary Care Physician No Primary Care Physician HPI The patient is a 45 years old man, he is from that [place], he says that he has been in [place] for a few weeks of education, employed, , self reported psychiatric history of bipolar disorder and antisocial personality disorder, previous hospitalizations, outpatient psychiatric care in [place], he says that he is Xanax 2 mg twice a day, he denies previous suicidal attempts, medical history of hypertension and pancreatitis, on his arrival to the ER due to abdominal pain Patient reports that he was riding a bike and became dizzy and "forgot how to ride a bike" that was this am at 0400 (09/27/2016 ). This has never happened to him before. He states that he was having difficulty holding the handle bars. "My left side wasn't working". Called 911. While waiting for the ambulance he reports that his left side was "not cooperating." He also reports having a headache at that time and his vision became blurry. These symptoms lasted 3-5 minutes. Also having severe pain in his feet from walking so much. Walking all day and all night, did not "want to impose on anybody so I just kept walking". Got into an argument with her mother , left her house (Sunday). He reports not wanting to be around anybody and feeling depressed. Consulted to psychiatry due to depression and suicidal ideation. However, on psychiatric evaluation patient is found deeply sleep, at the beginning refusing to speak with psychiatry, stating that he doesn't need a psychiatrist. Patient says that all that he needs is his Xanax for his depression. He says that he has been taking Xanax 2 mg 3 times a day prescribed by psychiatrist in in [place]. Patient says that he has been using cocaine and cannabis to replace the Xanax. At this moment he denies suicidal or homicidal ideation, he denies visual and auditory hallucinations. Patient is oriented 3. Review of Systems Constitutional: DENIES: Diaphoretic episodes, Fatigue, Fever, Weight gain, Weight loss, Chills, Dizziness, Change in appetite, Night Sweats Endocrine: DENIES: Heat/cold intolerance, Polydipsia, Polyuria, Polyphagia Eyes: DENIES: Blurred vision, Diplopia, Eye inflammation, Eye pain, Vision loss , Photosensitivity, Double Vision Ears, nose, mouth, throat: DENIES: Tinnitus, Hearing loss, Vertigo, Nasal discharge, Oral lesions, Throat pain, Hoarseness, Ear Pain, Running Nose, Epistaxis, Sinus Pain, Toothache, Odynophagia Respiratory: DENIES: Apneas, Cough, Snoring, Wheezing, Hemoptysis, Sputum production, Shortness of breath Cardiovascular: DENIES: Chest pain, Palpitations, Syncope, Dyspnea on Exertion , PND, Lower Extremity Edema, Orthopnea, Claudication Gastrointestinal: DENIES: Abdominal pain, Black stools, Bloody stools, Constipation, Diarrhea, Nausea, Vomiting, Difficulty Swallowing, Anorexia Genitourinary: DENIES: Sexual dysfunction, Urinary frequency, Urinary incontinence, Urgency, Hematuria, Dysuria, Nocturia, Penile Discharge, Testicular Pain, Testicular Swelling Musculoskeletal: DENIES: Joint pain, Muscle aches, Stiffness, Joint Swelling, Back pain, Neck pain Integumentary: DENIES: Abnormal pigmentation, Nail changes, Pruritus, Rash Hematologic/lymphatic: DENIES: Bruising, Lymphadenopathy Immunologic/allergic: DENIES: Eczema, Urticaria Neurologic: DENIES: Abnormal gait, Headache, Localized weakness, Paresthesias, Seizures, Speech Problems, Tremor, Poor Balance Psychiatric: COMPLAINS OF: Depression, DENIES: Anxiety, Confusion, Mood changes, Hallucinations, Agitation, Suicidal Ideation, Homicidal Ideation, Delusions Past Family Social History Coded Allergies: No Known Allergies (Unverified , 09/19/16) Active Scripts Nifedipine ER 24 HR 90 Mg Tab90 Mg PO DAILY #30 TAB Ref 0 Prov:Bradley Russo MD R2 09/20/16 Lisinopril 40 Mg Tab40 Mg PO DAILY #30 TAB Ref 0 Prov:Bradley Russo MD R2 09/20/16 Gabapentin 100 Mg [id number] Mg PO DAILY #60 CAP Ref 0 Prov:Bradley Russo MD R2 09/20/16 Hydralazine 100 Mg Tab50 Mg PO TID #90 TAB Ref 0 Take with meals Prov:Bradley Russo MD R2 09/20/16 Omeprazole 40 Mg Cap40 Mg PO DAILY #30 CAP Ref 0 Prov:Bradley Russo MD R2 09/20/16 Reported Medications Escitalopram (Lexapro)5 Mg TabUnknown Dose PO DAILY Ref 0 09/19/16 Alprazolam 2 Mg Tab2 Mg PO TID PRN (MILD ANXIETY) 09/19/16 Lisinopril 2.5 Mg Tab40 Mg PO DAILY Ref 0 09/19/16 Nifedipine 10 Mg Cap90 Mg PO DAILY #120 CAP Ref 0 09/19/16 Discontinued Reported Medications Gabapentin 100 Mg [id number] Mg PO DAILY Ref 0 09/19/16 Omeprazole 10 Mg CapUnknown Dose PO DAILY Ref 0 09/19/16 Hydralazine 100 Mg Tab50 Mg PO TID Ref 0 Take with meals 09/19/16 Current Medications Medications (Trade) Dose Ordered Sig/Iron Route Start Time Stop Time Status Last Admin (Cardene Inj/NS 250 ml Inj) 260 ml @ 0 mls/hr TITRATE IV 09/27/16 12:00 (Aspirin) 325 mg DAILY PO 09/27/16 12:00 09/27/16 12:13 (Pravachol) 40 mg HS PO 09/27/16 21:00 (NovoLOG SUPPLEMENTAL SCALE) 1 ACHS SQ 09/27/16 11:00 (D50w (Vial) Inj) 50 ml UNSCH PRN IV PUSH 09/27/16 10:45 (Glucagon Inj) 1 mg UNSCH PRN OTHER 09/27/16 10:45 (Narcan Inj) 0.4 mg UNSCH PRN IV 09/27/16 11:00 (NS Flush) 2 ml UNSCH PRN IV FLUSH 09/27/16 11:00 (NS Flush) 2 ml BID IV FLUSH 09/27/16 21:00 (Xanax) 1 mg Q6H PRN PO 09/27/16 11:45 (Protonix) 40 mg DAILY PO 09/27/16 11:45 09/27/16 12:12 Family History He denies family psychiatric history Social History Patient was born in [facility], he says that he lives in [place] with his , his of occasions now, he is , has 2 kids, he is employed, highest level of education is high school Physical Exam Vital Signs Vital Signs Date Time Temp Pulse Resp B/P Pulse Ox O2 Delivery O2 Flow Rate FiO2 09/27/16 12:00 98.0 54 18 169/90 98 09/27/16 09:13 Room Air Lab Results Labs Laboratory Tests Test 09/27/16 05:00 White Blood Count 7.1 TH/MM3 Red Blood Count 4.26 MIL/MM3 Hemoglobin 13.0 GM/DL Hematocrit 37.8 % Mean Corpuscular Volume 88.6 FL Mean Corpuscular Hemoglobin 30.4 PG Mean Corpuscular Hemoglobin 34.4 % Concent Red Cell Distribution Width 14.7 % Platelet Count 341 TH/MM3 Mean Platelet Volume 7.3 FL Neutrophils (%) (Auto) 55.0 % Lymphocytes (%) (Auto) 31.8 % Monocytes (%) (Auto) 11.0 % Eosinophils (%) (Auto) 1.2 % Basophils (%) (Auto) 1.0 % Neutrophils # (Auto) 3.9 TH/MM3 Lymphocytes # (Auto) 2.2 TH/MM3 Monocytes # (Auto) 0.8 TH/MM3 Eosinophils # (Auto) 0.1 TH/MM3 Basophils # (Auto) 0.1 TH/MM3 CBC Comment DIFF FINAL Differential Comment Sodium Level 139 MEQ/L Potassium Level 3.7 MEQ/L Chloride Level 105 MEQ/L Carbon Dioxide Level 26.2 MEQ/L Anion Gap 8 MEQ/L Blood Urea Nitrogen 15 MG/DL Creatinine 1.24 MG/DL Estimat Glomerular Filtration 76 ML/MIN Rate Random Glucose 85 MG/DL Calcium Level 8.9 MG/DL Total Bilirubin 0.5 MG/DL Aspartate Amino Transf 24 U/L (AST/SGOT) Alanine Aminotransferase 24 U/L (ALT/SGPT) Alkaline Phosphatase 80 U/L Total Protein 7.6 GM/DL Albumin 3.7 GM/DL Lipase 170 U/L Mental Status Examination Appearance man, age appearing, [facility], poorly cooperative, oppositional and irritable Speech: Unremarkable Orientation: x3 Memory: Unremarkable Thought Process: Logical Thought Content: Unremarkable Hallucination Type: None Suicidal Ideation: No Previous Suicide Attempts: Yes Homicidal Ideation: No Previous Homicide Attempts: No Judgment: WNL Affect: Irritable Affect if Inappropriate: Labile Mood: Appropriate Motor Activity: Normal gait Assessment & Plan Problem List: (1) Substance induced mood disorder Assessment & Plan: The patient is a 45 years old man, he is from [facility], he says that he has been in [place] for a few weeks of education , employed, , self reported psychiatric history of bipolar disorder and antisocial personality disorder, previous hospitalizations, outpatient psychiatric care in [place], he says that he is Xanax 2 mg twice a day, he denies previous suicidal attempts, medical history of hypertension and pancreatitis, on his arrival to the ER due to abdominal pain and depression. On psychiatric evaluation patient was at the beginning oppositional, irritable, refusing to speak with a psychiatrist, stating that he doesn't need to speak with a psychiatrist in all that he needs is his outpatient medications "medication for pain and Xanax"prescribed by "my psychiatrist [place]". Patient says that he is and Xanax 2 mg 3 times a day. During this visit patient is positive for cannabis and cocaine. He denies depressive symptoms, he denies suicidal ideation, he denies homicidal ideation, he denies visual and auditory hallucinations. I do not see a clear indication for Xanax in this patient, patient does not remember and does not know the name of his psychiatrist in the [place] to get collateral information in order to restart his Xanax. Meanwhile, due to this history of antisocial personality disorder, substance abuse, I would not recommend benzodiazepine i standing doses. No psychiatric admission is indicated at this moment. If patient is acutely anxious hydroxyzine 25 mg every 8 hours can be giving, also gabapentin 300 mg 3 times a day, or even Seroquel 50 mg twice a day. Psychoeducation, supportive motivation provided. ICD Code: F19.94 Assessment & Plan Estimated LOS: Gerald Mcdonnell MD Sep 27, 2016 15:16
[2016-09-27 18:30] LABS: HEMOGLOBIN A1a 1.1 %; HEMOGLOBIN A1b 1.7 %
[2016-09-27 18:31] LABS: HEMOGLOBIN Ao 85.1 %; HEMOGLOBIN LA1C 1.7 %; HEMOGLOBIN P3 3.7 %
[2016-09-27] MEDS: ALPRAZolam 1 MG TAB PO PRN (18:33)
[2016-09-27] MEDS: hydrALAZINE HCL 50 MG TAB PO SCH ×2 (18:33→21:39)
[2016-09-27] MEDS: LISINOPRIL 20 MG TAB PO SCH (18:36)
[2016-09-27] MEDS ORDERED: PRAVASTATIN SOD 40 MG TAB PO SCH (21:00)
[2016-09-27] MEDS ORDERED: SODIUM CHLORIDE 0.9% FLUSH 10 ML FLUSH IV FLUSH SCH (21:00)
[2016-09-27] MEDS: ENOXAPARIN SODIUM 40 MG/0.4 ML SYRINGE SQ SCH (21:39)
[2016-09-27] MEDS: SODIUM CHLORIDE 0.9% FLUSH 10 ML FLUSH IV FLUSH SCH (21:40)
[2016-09-27] MEDS: ATORVASTATIN 40 MG TAB PO SCH (21:48)
[2016-09-28] VITALS (10 sets, daily range): BP systolic 139–176; BP diastolic 83–103; PULSE 55–76; RESP 16–20; TEMP 97.5–97.8; O2SAT 95–99
[2016-09-28] MEDS: ALPRAZolam 1 MG TAB PO PRN ×3 (04:05→17:21)
[2016-09-28] MEDS: hydrALAZINE HCL 50 MG TAB PO SCH ×5 (05:01→22:16)
[2016-09-28] MEDS: INSULIN ASPART SUPPLEMENTAL SCALE SQ SCH ×4 (06:40→21:00)
[2016-09-28 08:54] LABS: AUTOMATED NEUTROPHIL # 3.7 TH/MM3 (1.8-7.7); BASOPHIL # 0.1 TH/MM3 (0-0.2); BASOPHIL % 0.9 % (0.0-2.0); EOSINOPHIL # 0.2 TH/MM3 (0-0.4); EOSINOPHIL % 3.2 % (0.0-4.0); HEMATOCRIT 37.9 % (39.0-51.0); HEMO FLAGS DIFF FINAL; LYMPH % 32.7 % (9.0-44.0); LYMPHOCYTE # 2.4 TH/MM3 (1.0-4.8); MEAN CELL VOLUME 88.9 FL (80.0-100.0); MEAN CORPUSCULAR HEMOGLOBIN 29.8 PG (27.0-34.0); MEAN CORPUSCULAR HGB CONC 33.5 % (32.0-36.0); MONO % 11.1 % (0.0-8.0); NEUT % 52.1 % (16.0-70.0); PLATELET COUNT 349 TH/MM3 (150-450); RED BLOOD COUNT 4.26 MIL/MM3 (4.50-5.90); RED CELL DISTRIBUTION WIDTH 14.9 % (11.6-17.2); WHITE BLOOD COUNT 7.2 TH/MM3 (4.0-11.0)
[2016-09-28] MEDS: SODIUM CHLORIDE 0.9% FLUSH 10 ML FLUSH IV FLUSH SCH ×2 (09:00→22:16)
[2016-09-28 09:57] LABS: ALKALINE PHOSPHATASE 73 U/L (45-117); ALT (GPT) 18 U/L (12-78); AST (GOT) 13 U/L (15-37); BLOOD UREA NITROGEN 16 MG/DL (7-18); CHLORIDE 107 MEQ/L (98-107); HDL CHOLESTEROL 38.2 MG/DL (40.0-60.0); POTASSIUM 3.6 MEQ/L (3.5-5.1); SODIUM (NA) 142 MEQ/L (136-145)
[2016-09-28 10:01] LABS: ANION GAP 8 MEQ/L (5-15); BICARBONATE 27.1 MEQ/L (21.0-32.0); LDL CHOLESTEROL 73 MG/DL (0-99); TOTAL BILIRUBIN ADULT 0.3 MG/DL (0.2-1.0)
[2016-09-28] MEDS ORDERED: GADODIAMIDE PF 287 MG/ML 5 ML VIAL (for RAD MRI) IV ONE (10:13)
--- NOTE | 2016-09-28 10:54 | RADRPT ---
EXAM DATE/TIME: 09/28/2016 10:22 [facility] COMPARISON: No previous studies available for comparison. INDICATIONS : Transient ischemic attack. MEDICAL HISTORY : Hypercholesterolemia. Hypertension. Pancreatitis. GERD. Bipolar disorder. Severe anxiety. Chronic dep ression. OCD. Substance use. SURGICAL HISTORY : None. ENCOUNTER: Initial ACUITY: 1 day PAIN SCORE: 0/10 LOCATION: Bilateral neck PEAK SYSTOLIC VELOCITIES (cm/sec): ICA/CCA RATIO: Right: 1.6 Left: 1.0 ICA: Right: 114 Left: 103 CCA: Right: 72 Left: 98 ECA: Right: 73 Left: 59 VERTEBRAL: Right: 64 antegrade Left: 96 antegrade Elevated flow velocities and ICA/CCA ratios have been found to correlate with increased degrees of vessel stenosis, calculated as percentage of diameter relative to a normal segment of distal ICA/CCA FINDINGS: RIGHT CAROTID: No significant stenosis is visualized. The waveforms are within normal limits. LEFT CAROTID: No significant stenosis is visualized. The waveforms are within normal limits. VERTEBRAL ARTERIES: Antegrade flow is seen in both vertebral arteries. MISCELLANEOUS: None. CONCLUSION: 1. Minimal plaque at the carotid bifurcations. No hemodynamically significant stenosis. Borderline to mildly enlarged lymph nodes in the neck bilaterally. Keyon Santo MD on September 28, 2016 at 10:50 Board Certified Radiologist. This report was verified electronically.
[2016-09-28] MEDS: PANTOPRAZOLE SOD 40 MG DELAYED RELEASE TAB PO SCH (10:57)
[2016-09-28] MEDS: ATORVASTATIN 40 MG TAB PO SCH (10:57)
[2016-09-28] MEDS: LISINOPRIL 20 MG TAB PO SCH (10:57)
[2016-09-28] MEDS: ASPIRIN 325 MG TAB PO SCH (10:57)
--- NOTE | 2016-09-28 11:01 | RADRPT ---
EXAM DATE/TIME: 09/28/2016 09:53 [facility] COMPARISON: CT ABDOMEN & PELVIS W CONTRAST, September 27, 2016, 6:53. INDICATIONS : Right adrenal mass. CONTRAST: 14 cc Omniscan (gadodiamide) IV MEDICAL HISTORY : Hypertension. Gastroesophageal reflux disease. Pancreatitis. SURGICAL HISTORY : None. ENCOUNTER: Subsequent ACUITY: 2 day PAIN SCORE: 0/10 LOCATION: abdomen. TECHNIQUE: Multiplanar, multisequence magnetic resonance imaging of the abdomen was performed without and with i ntravenous contrast. FINDINGS: LIVER: Normal size with normal signal intensity. No lesion is identified. Portal vein is within normal limi ts. BILIARY: There is no intra- or extra-hepatic biliary ductal dilatation. Gallbladder contains no stones. SPLEEN: Within normal limits. PANCREAS: Within normal limits. ADRENALS: There is a right adrenal gland mass measuring 3.8 x 2.8 x 4.0 cm. It is T2 and T1 hypointense. It dem onstrates marked signal loss on out of phase imaging indicating intravoxel fat. It enhances heterogen eously. No macroscopic fat is visualized. Left adrenal gland is normal. KIDNEYS: Normal size and signal intensity. There is no hydronephrosis or mass. There are 2 benign-appearing s imple cysts in the left kidney measuring 2 cm and 2.8 cm. OTHER: Aorta is nonaneurysmal. There is mild atherosclerotic disease. There is no lymphadenopathy. CONCLUSION: 1. The right adrenal gland mass measures up to 4 cm. It demonstrates imaging features characteristic of an adrenal gland adenoma. Given the size of the mass and the heterogeneous enhancement suggest a s ix-month followup imaging to confirm stability. Alternatively, suggest correlating with any prior chapo ging studies that could document longer term stability. Please note that imaging cannot determine whe ther an adrenal gland lesion is functioning or nonfunctioning. 2. There is mild atherosclerotic disease. Piotr Monroy MD on September 28, 2016 at 10:50 Board Certified Radiologist. This report was verified electronically.
--- NOTE | 2016-09-28 11:09 | HHI.FPPN ---
Subjective Remarks No acute events overnight. Afebrile, vital signs stable. Blood pressures stable in the [id number] systolic. Patient states he is feeling that her today, denies suicidal/homicidal ideation. Left-sided weakness resolved. (Ally Leon MD R3) Objective Vitals Vital Signs Date Time Temp Pulse Resp B/P Pulse Ox O2 Delivery O2 Flow Rate FiO2 09/28/16 09:00 97 21 09/28/16 06:12 165/83 09/28/16 04:00 97.7 55 18 176/103 99 09/28/16 00:00 97.8 59 18 141/90 98 09/27/16 22:41 98 21 09/27/16 20:00 98.5 62 18 151/76 98 09/27/16 19:57 71 09/27/16 16:00 97.9 61 18 151/85 98 09/27/16 12:00 98.0 54 18 169/90 98 09/27/16 11:13 68 16 178/80 98 09/27/16 10:52 97 I/O 09/27/16 09/27/16 09/27/16 09/28/16 09/28/16 09/28/16 07:00 15:00 23:00 07:00 15:00 23:00 Intake Total 1000 ml 360 ml 240 ml Output Total 400 ml 500 ml Balance 600 ml 360 ml -260 ml Intake Oral 360 ml 240 ml IV Total 1000 ml 0 ml Output Urine Total 400 ml 500 ml # Voids 1 1 # Bowel Movements 1 0 (Ally Leon MD R3) Result Diagram: 09/28/1614 09/28/1614 Objective Remarks Gen.: No acute distress Head: Normocephalic. Atraumatic. EENT: Pupils equal round and reactive to light. Nose without drainage. Airway intact. Throat without injection. Cardiovascular: Regular rate and rhythm. No murmurs, rubs or gallops. Respiratory: Lungs clear to auscultation bilaterally. No wheezes or rhonchi. Abdomen: Soft, nontender, nondistended. No peritoneal signs. Musculoskeletal: No gross deformities. No edema. Skin: No obvious rashes or erythema. Neuro: Sensory and motor grossly intact. Cranial nerves II through XII grossly intact. Psych: Appropriate mood and affect (Ally Leon MD R3) A/P Assessment and Plan Jeremiah Antunez is a pleasant 45-year-old male, with past medical history of uncontrolled hypertension, pancreatitis, acid reflux, major depressive disorder , presenting with acute onset left-sided weakness and decreased coordination, as well as blood pressures of 215 systolic. Also having passive suicidal ideation. He will be admitted for a stroke workup, hypertensive emergency, and suicidal ideation. Discharge Planning Discharge tomorrow after carotid ultrasound, echo and 24 hour urine collection. Patient plans to return to [place] for follow-up. (Ally Leon MD R3) Attending Attestation Patient seen and examined. Case reviewed and discussed Agree with plan of care as discussed with me and documented in the resident note. (Eva Stafford MD) Problem List: (1) Left-sided muscle weakness Status: Resolved Plan: Resolved. Carotid ultrasound pending. Echo pending. CT head/MRI/MRA within normal limits. Likely TIA. Counseled patient extensively as to lifestyle changes including blood pressure management and discontinuation of cocaine as being essential to his care. (2) Uncontrolled hypertension Status: Acute Plan: 215/109 on admission. Now controlled. Restarted patient's home nifedipine, lisinopril and hydralazine. (3) Adrenal mass Status: Acute Plan: Concerning for Pheochromocytoma. Collect 24 hours urine metanephrines and fractionated plasma metanephrines. MRI pending (4) GERD (gastroesophageal reflux disease) Status: Acute Plan: Protonix 40 mg daily. Lipase wnl, abdominal pain subsided. (5) Suicidal thoughts Status: Acute Plan: Patient severely depressed on exam. Thoughts of jumping out in front of a semi-truck. No active suicidal thoughts, ideations, or plan. Not taking his home Lexapro and Xanax. Psychiatry saw the patient, recommend no pharmacologic intervention at this time. Suggest when necessary medication as documented. (6) Nutrition, metabolism, and development symptoms Status: Acute Plan: Nutrition: Regular diet Electrolytes: Replete when necessary DVT ppx: Lovenox GI ppx: as above. (Ally Leon MD R3) Ally Leon MD R3 Sep 28, 2016 11:09 Eva Stafford MD Oct 02, 2016 14:35
[2016-09-28] MEDS: NIFEdipine 90 MG SUSTAINED RELEASE TAB PO SCH (12:31)
--- NOTE | 2016-09-28 12:38 | ECHRPT ---
Indication: cva/tia CONCLUSIONS The left ventricular systolic function is normal with an estimated ejection fraction in the range of 60-65%. Normal left ventricular size. Mild concentric left ventricular hypertrophy. Structurally normal mitral valve. Mild mitral valve regurgitation. Structurally normal tricuspid valve. There is mild tricuspid valve regurgitation. BP: 188 / 106 HR: 71 Rhythm: Sinus MEASUREMENTS (Male / Female) Normal Values Technical Quality:Excellent 2D ECHO LV Diastolic Diameter PLAX 4.6 cm 4.2 - 5.9 / 3.9 - 5.3 cm LV Systolic Diameter PLAX 3.3 cm IVS Diastolic Thickness 1.2 cm 0.6 - 1.0 / 0.6 - 0.9 cm LVPW Diastolic Thickness 1.3 cm 0.6 - 1.0 / 0.6 - 0.9 cm LV Relative Wall Thickness 0.5 RV Internal Dim ED PLAX 2.8 cm M-MODE Aortic Root Diameter MM 3.1 cm LA Systolic Diameter MM 3.0 cm LA Ao Ratio MM 1.0 AV Cusp Separation MM 1.9 cm DOPPLER Mitral E Point Velocity 94.3 cm/s Mitral A Point Velocity 60.7 cm/s Mitral E to A Ratio 1.6 LV E' Lateral Velocity 9.5 cm/s Mitral E to LV E' Lateral Ratio 10.0 LV E' Septal Velocity 4.6 cm/s Mitral E to LV E' Septal Ratio 20.6 TR Peak Velocity 326.0 cm/s TR Peak Gradient 42.5 mmHg FINDINGS LEFT VENTRICLE The left ventricular systolic function is normal with an estimated ejection fraction in the range of 60-65%. Normal left ventricular size. Mild concentric left ventricular hypertrophy. MITRAL VALVE Structurally normal mitral valve. Mild mitral valve regurgitation. TRICUSPID VALVE Structurally normal tricuspid valve. There is mild tricuspid valve regurgitation. Amilcar Thorpe MD (Electronically Signed) Final Date:28 September 2016 12:37
--- NOTE | 2016-09-28 13:52 | EKG ---
Date Performed: 09/27/2016 Time Performed: 16:58:09 PTAGE: 45 years EKG: SINUS BRADYCARDIA BORDERLINE RIGHT AXIS DEVIATION MODERATE INTRAVENTRICULAR CONDUCTION JAGDEEP Y BORDERLINE ECG Compared to prior tracing no significant change PREVIOUS TRACING : 09/27/2016 04.59 DOCTOR: Reyna Clements Interpretating Date/Time 09/28/2016 13:45:49
[2016-09-28] MEDS: ENOXAPARIN SODIUM 40 MG/0.4 ML SYRINGE SQ SCH (22:00)
[2016-09-29 00:15] VITALS: BP_SYST 118; BP_SYST 130; BP_DIAS 64; BP_DIAS 65; PULSE 64; PULSE 96; RESP 20; TEMP 97.8; TEMP 98.4; O2SAT 97; O2SAT 98
[2016-09-29 04:00] VITALS: BP 128/77; PULSE 67; RESP 20; TEMP 97.9; O2SAT 99
[2016-09-29] MEDS: ALPRAZolam 1 MG TAB PO PRN ×2 (05:30→11:52)
[2016-09-29] MEDS: hydrALAZINE HCL 50 MG TAB PO SCH ×4 (05:30→11:54)
[2016-09-29] MEDS: INSULIN ASPART SUPPLEMENTAL SCALE SQ SCH ×2 (06:02→11:00)
[2016-09-29 08:00] VITALS: BP 128/80; PULSE 66; RESP 20; TEMP 97.3; O2SAT 97
[2016-09-29] MEDS: PANTOPRAZOLE SOD 40 MG DELAYED RELEASE TAB PO SCH (08:29)
[2016-09-29] MEDS: ASPIRIN 325 MG TAB PO SCH (08:29)
[2016-09-29] MEDS: LISINOPRIL 20 MG TAB PO SCH (08:29)
[2016-09-29] MEDS: NIFEdipine 90 MG SUSTAINED RELEASE TAB PO SCH (08:29)
[2016-09-29] MEDS: ATORVASTATIN 40 MG TAB PO SCH (08:29)
[2016-09-29] MEDS: SODIUM CHLORIDE 0.9% FLUSH 10 ML FLUSH IV FLUSH SCH (08:37)
--- NOTE | 2016-09-29 09:23 | HHI.FPPN ---
Subjective Remarks Patient feeling well, requesting to go home. Denies any headaches, chest pain, palpitations, or new weakness. (Bradley Russo MD R2) Objective Vitals Vital Signs Date Time Temp Pulse Resp B/P Pulse Ox O2 Delivery O2 Flow Rate FiO2 09/29/16 08:00 97.3 66 20 128/80 97 09/29/16 04:00 97.9 67 20 128/77 99 09/29/16 00:15 97.8 64 20 130/65 98 09/28/16 22:15 21 09/28/16 20:12 76 09/28/16 20:00 97.7 65 20 143/84 98 09/28/16 16:00 97.8 65 16 157/95 99 09/28/16 12:00 97.8 64 16 162/86 98 I/O 09/28/16 09/28/16 09/28/16 09/29/16 09/29/16 09/29/16 07:00 15:00 23:00 07:00 15:00 23:00 Intake Total 240 ml 200 ml 220 ml 1080 ml Output Total 500 ml 600 ml Balance -260 ml -400 ml 220 ml 1080 ml Intake Oral 240 ml 200 ml 220 ml 1080 ml IV Total 0 ml Output Urine Total 500 ml 600 ml # Voids 4 7 # Bowel Movements 0 1 0 0 (Bradley Russo MD R2) Result Diagram: 09/28/1614 09/28/16 0714 Objective Remarks Gen.: No acute distress Head: Normocephalic. Atraumatic. EENT: Pupils equal round and reactive to light. Nose without drainage. Airway intact. Throat without injection. Cardiovascular: Regular rate and rhythm. No murmurs, rubs or gallops. Respiratory: Lungs clear to auscultation bilaterally. No wheezes or rhonchi. Abdomen: Soft, nontender, nondistended. No peritoneal signs. Musculoskeletal: No gross deformities. No edema. Skin: No obvious rashes or erythema. Neuro: Sensory and motor grossly intact. Cranial nerves II through XII grossly intact. Psych: Appropriate mood and affect (Bradley Russo MD R2) A/P Assessment and Plan Jeremiah Antunez is a pleasant 45-year-old male, with past medical history of uncontrolled hypertension, pancreatitis, acid reflux, major depressive disorder , presenting with acute onset left-sided weakness and decreased coordination, as well as blood pressures of 215 systolic. Also having passive suicidal ideation. He will be admitted for a stroke workup, hypertensive emergency, and suicidal ideation. Discharge Planning Discharge today 09/29. Patient plans to return to [place] for follow-up. (Bradley Russo MD R2) Attending Attestation Patient seen and examined. Case reviewed and discussed Agree with plan of care as discussed with me and documented in the resident note. (Eva Stafford MD) Problem List: (1) Left-sided muscle weakness Status: Resolved Plan: Resolved. Carotid ultrasound showed no significant plaques or stenosis. Echo showed an EF of 60-65%, concentric left ventricle hypertrophy, and trace mitral valve regurgitation. CT head/MRI/MRA within normal limits. Counseled patient extensively as to lifestyle changes including blood pressure management and discontinuation of cocaine as being essential to his care. (2) Uncontrolled hypertension Status: Acute Plan: 215/109 on admission. Now controlled. Restarted patient's home nifedipine, lisinopril and hydralazine. (3) Adrenal mass Status: Acute Plan: Concerning for Pheochromocytoma. Collect 24 hours urine metanephrines and fractionated plasma metanephrines. MRI showed a 4 cm lesion right adrenal gland, demonstrating features characteristic of an adrenal gland adenoma. Recommend a repeat CT of the abdomen in 6 months to assess for growth. Patient is aware that he will need to follow up with this as an outpatient and with his PCP. Continue with urine collection. (4) GERD (gastroesophageal reflux disease) Status: Acute Plan: Protonix 40 mg daily. Lipase wnl, abdominal pain subsided. (5) Suicidal thoughts Status: Acute Plan: Patient severely depressed on exam. Thoughts of jumping out in front of a semi-truck. No active suicidal thoughts, ideations, or plan. Not taking his home Lexapro and Xanax. Psychiatry saw the patient, recommend no pharmacologic intervention at this time. Suggest when necessary medication as documented. (6) Nutrition, metabolism, and development symptoms Status: Acute Plan: Nutrition: Regular diet Electrolytes: Replete when necessary DVT ppx: Lovenox GI ppx: as above. (Bradley Russo MD R2) Bradley Russo MD R2 Sep 29, 2016 09:23 Eva Stafford MD Oct 02, 2016 14:35
[2016-09-29] MEDS ORDERED: XANA1TAB2 PO (10:51)
--- NOTE | 2016-09-29 10:52 | HHI.DCPOC ---
Discharge Care Plan Diagnosis: (1) Hypertension (2) GERD (gastroesophageal reflux disease) (3) TIA (transient ischemic attack) (4) Left-sided muscle weakness Goals to Promote Your Health * To prevent worsening of your condition and complications * To maintain your health at the optimal level Directions to Meet Your Goals Take your medications as prescribed Follow your dietary instruction Follow activity as directed Keep your appointments as scheduled Take your immunizations and boosters as scheduled If your symptoms worsen call your PCP, if no PCP go to Urgent Care Center or Emergency Room Smoking is Dangerous to Your Health. Avoid second hand smoke Call the 24-hour hour crisis hotline for domestic abuse at Bradley Russo MD R2 Sep 29, 2016 10:52
[2016-09-29 12:00] VITALS: BP 142/76; PULSE 71; RESP 18; TEMP 98.4; O2SAT 100
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
== END 2016-09-29 13:57 | disposition home or self-care (01) | DRG 305 ==
LOC: NEPC 04:47 → NEDA 09:50 → OBSVTOIN 10:11 → N04B 11:33
PROVIDERS: ADMIT Family Medicine; ATTEND Family Medicine
DX: I16.1 Hypertensive emergency (principal); R45.851 Suicidal ideations; K86.1 Other chronic pancreatitis; F31.9 Bipolar disorder, unspecified; F41.9 Anxiety disorder, unspecified; I45.10 Unspecified right bundle-branch block; K21.9 Gastro-esophageal reflux disease without esophagitis; I10 Essential (primary) hypertension; R10.13 Epigastric pain; F14.90 Cocaine use, unspecified, uncomplicated; M62.81 Muscle weakness (generalized); F60.2 Antisocial personality disorder; Z91.14 Patient's other noncompliance with medication regimen; F12.90 Cannabis use, unspecified, uncomplicated; F19.94 Other psychoactive substance use, unspecified with psychoactive substance-induced mood disorder; I34.0 Nonrheumatic mitral (valve) insufficiency; D35.00 Benign neoplasm of unspecified adrenal gland
CPT/HCPCS: 70450; 70544; 70551; 71010; 74177; 74183; 80053; 80061; 80307; 81001; 82948; 83036; 83690; 83835; 84484; 85025; 93005; 93306; 93880; 96361; 96374; 96375; 96376; A9579; C9113; J0360; J1170; J1650; J2270; J2405; J7030; Q9967